=== PATIENT | female | born 1965 | race Caucasian/White ===

== ENCOUNTER 2021-03-07 19:39 | Inpatient (IN) | payer MEDICAID ==
[~2021-03-07] VITALS: Ht 162.6 cm; Wt 63.4 kg
[2021-03-07] MEDS ORDERED: CefTRIAXone/D5W-Rocephin 1gm 50 ML IV ONE (23:00)
[2021-03-07 23:02] LABS: BASOPHILS % (AUTO) 0.4 % (0-1); EOSINOPHILS % (AUTO) 0.3 % (0-6); HEMATOCRIT 37.6 % (35.0-45.0); HEMOGLOBIN 12.3 g/dl (12.0-16.0); LYMPHOCYTES # (AUTO) 0.8 X10'3 (1.1-4.8); LYMPHOCYTES % (AUTO) 6.2 % (21-51); MEAN CORPUSCULAR HEMOGLOBIN 28.9 PG (27.0-31.0); MEAN CORPUSCULAR HGB CONC 32.7 g/dL (33.0-36.5); MEAN CORPUSCULAR VOLUME 88.3 FL (78-98); MEAN PLATELET VOLUME 8.3 FL (7.4-10.4); MONOCYTES # (AUTO) 1.4 X10'3 (0-0.9); MONOCYTES % (AUTO) 11.1 % (2-12); NEUTROPHILS # (AUTO) 10.1 X10'3 (1.8-7.7); PLATELET COUNT 174 X10'3 (140-440); RED BLOOD COUNT 4.26 X10'6 (4.20-5.60); RED CELL DISTRIBUTION WIDTH 15.6 % (11.5-14.5); WHITE BLOOD COUNT 12.3 X10'3 (4.5-11.0)
[2021-03-07 23:09] LABS: ALBUMIN 2.7 G/DL (3.4-5.0); ANION GAP 9 (8-16); BLOOD UREA NITROGEN 23 MG/DL (7-18); BUN/CREATININE RATIO 22.1 (6.6-38.0); CHLORIDE 106 MMOL/L (99-107); CREATININE 1.04 MG/DL (0.40-0.90); GLUCOSE 116 MG/DL (70-104); POTASSIUM 3.5 MMOL/L (3.5-5.1); SODIUM 142 MMOL/L (135-145); TOTAL CARBON DIOXIDE 26.6 MMOL/L (24-32); eGFR 55 ML/MIN
[2021-03-08] MEDS ORDERED: magnesium hydroxide 30ml (MOM) UD suspension PO PRN (01:30)
[2021-03-08] MEDS ORDERED: acetaminophen 325mg tablet PO PRN (01:30)
[2021-03-08] MEDS ORDERED: mag hydrox/Alum hydrox/simeth 30ml oral suspension PO PRN (01:30)
[2021-03-08] MEDS ORDERED: HYDROcodone/acetaminophen 5mg/325mg tablet PO PRN (01:30)
[2021-03-08] MEDS ORDERED: ondansetron/PF 4mg/2ml inj IV PRN (01:30)
[2021-03-08] MEDS ORDERED: CALC600T35 PO (01:52)
[2021-03-08] MEDS ORDERED: AMOX500C4 PO (01:52)
[2021-03-08] MEDS ORDERED: CHOL500050 PO (01:52)
[2021-03-08] MEDS ORDERED: PRED10TA PO (01:52)
[2021-03-08] MEDS ORDERED: DOXY100T30 PO (01:52)
[2021-03-08] MEDS ORDERED: AMOX-580 PO (01:52)
[2021-03-08] MEDS ORDERED: APIX5TAB3 PO (01:52)
[2021-03-08] MEDS: vancomycin/NS 1 GM ADD-VANTAGE 250 ML IV SCH ×2 (02:30→14:17)
--- NOTE | 2021-03-08 07:11 | NUR ---
Patient in room ED 1. I have received report from Jillian SMALLWOOD from ED and had the opportunity to ask questions and assume patient care.
[2021-03-08 07:36] VITALS: BP 119/74
[2021-03-08] MEDS: docusate sod 100mg capsule PO SCH ×2 (08:00→19:43)
[2021-03-08] MEDS ORDERED: amoxicillin 250mg capsule PO SCH (10:54)
[2021-03-08] MEDS ORDERED: cholecalciferol (vitamin D3) 1,000 unit (25mcg) tablet PO SCH (10:55)
[2021-03-08] MEDS ORDERED: DOXYCYCLINE 100MG CAPSULE PO SCH (10:56)
[2021-03-08 11:00] VITALS: BP 125/68
--- NOTE | 2021-03-08 13:21 | NUR ---
PAGER ID: [phone] MESSAGE: Rosio Chaney#[phone] Pt states she needs her prednisone today, she does not want to miss a dose. Can we give a 1x dose to get her caught up?? Thank you Gabriella Wade
[2021-03-08] MEDS ORDERED: prednisone 10mg tablet PO ONE (14:15)
--- NOTE | 2021-03-08 18:41 | NUR ---
Patient in room [facility] 346. I have received report from CL Quiroz and had the opportunity to ask questions and assume patient care.
[2021-03-08] MEDS: CefTRIAXone 2gm/D5W 50ml BAG 50 ML IV SCH (18:47)
[2021-03-08 19:00] VITALS: BP 130/68
--- NOTE | 2021-03-08 19:06 | NUR ---
Problems reprioritized. Patient report given, questions answered & plan of care reviewed with Irene SMALLWOOD.
[2021-03-08] MEDS: calcium carbonate 500mg tablet PO SCH (19:44)
[2021-03-08] MEDS: apixaban 5mg tablet PO SCH (19:44)
[2021-03-08] MEDS: lactobacillus rhamnosus 10,000 MMU CELLS/CAPSULE PO SCH (19:45)
[2021-03-09] VITALS: BP 145/70
[2021-03-09] MEDS: vancomycin/NS 1 GM ADD-VANTAGE 250 ML IV SCH (00:54)
[2021-03-09 06:09] LABS: BASOPHILS % (AUTO) 0.2 % (0-1); EOSINOPHILS # (AUTO) 0.1 X10'3 (0-0.9); EOSINOPHILS % (AUTO) 1.1 % (0-6); HEMATOCRIT 39.6 % (35.0-45.0); LYMPHOCYTES # (AUTO) 0.6 X10'3 (1.1-4.8); LYMPHOCYTES % (AUTO) 5.9 % (21-51); MEAN CORPUSCULAR HEMOGLOBIN 29.2 PG (27.0-31.0); MEAN CORPUSCULAR HGB CONC 32.9 g/dL (33.0-36.5); MEAN CORPUSCULAR VOLUME 88.6 FL (78-98); MEAN PLATELET VOLUME 8.6 FL (7.4-10.4); MONOCYTES # (AUTO) 0.9 X10'3 (0-0.9); MONOCYTES % (AUTO) 9.5 % (2-12); NEUTROPHILS % (AUTO) 83.3 % (42-75); PLATELET COUNT 164 X10'3 (140-440); RED BLOOD COUNT 4.47 X10'6 (4.20-5.60); RED CELL DISTRIBUTION WIDTH 15.4 % (11.5-14.5); WHITE BLOOD COUNT 9.6 X10'3 (4.5-11.0)
--- NOTE | 2021-03-09 06:10 | NUR ---
Problems reprioritized. Patient report given, questions answered & plan of care reviewed with CL Villa.
[2021-03-09 06:17] LABS: ALANINE AMINOTRANSFERASE 125 U/L (12-78); ALBUMIN 2.8 G/DL (3.4-5.0); ALBUMIN/GLOBULIN RATIO 0.6 (1.1-1.5); ALKALINE PHOSPHATASE 164 IU/L (46-116); ANION GAP 8 (8-16); ASPARTATE AMINO TRANSFERASE 82 U/L (10-37); BILIRUBIN,TOTAL 0.5 MG/DL (0.1-1.0); BLOOD UREA NITROGEN 14 MG/DL (7-18); BUN/CREATININE RATIO 17.1 (6.6-38.0); CALCIUM 8.7 MG/DL (8.5-10.1); CHLORIDE 110 MMOL/L (99-107); CREATININE 0.82 MG/DL (0.40-0.90); GLUCOSE 89 MG/DL (70-104); POTASSIUM 3.9 MMOL/L (3.5-5.1); SODIUM 145 MMOL/L (135-145); TOTAL PROTEIN 7.3 G/DL (6.4-8.2); eGFR 72 ML/MIN
--- NOTE | 2021-03-09 06:30 | NUR ---
Patient in room [facility] 346. I have received report from Irene SMALLWOOD and had the opportunity to ask questions and assume patient care.
[2021-03-09 07:00] VITALS: BP 147/81
[2021-03-09] MEDS: docusate sod 100mg capsule PO SCH (08:00)
[2021-03-09] MEDS ORDERED: prednisone 10mg tablet PO SCH (08:00)
--- NOTE | 2021-03-09 08:30 | NUR ---
attempt to flush patients saline lock prior to infusing abx. pt states too painful to flush. Request asking MD if can leave IV out. Dr Hayes on floor, states ok to leave IV out. Will order po abx.
[2021-03-09] MEDS: CefTRIAXone 2gm/D5W 50ml BAG 50 ML IV SCH (08:43)
[2021-03-09] MEDS: lactobacillus rhamnosus 10,000 MMU CELLS/CAPSULE PO SCH (08:45)
[2021-03-09] MEDS: apixaban 5mg tablet PO SCH (08:45)
[2021-03-09] MEDS: calcium carbonate 500mg tablet PO SCH (08:45)
[2021-03-09] MEDS ORDERED: CEPH-585 PO (09:19)
[2021-03-09] MEDS ORDERED: DOXYCYCLINE 100MG CAPSULE PO STA (11:23)
[2021-03-09 12:00] VITALS: BP 137/70
--- NOTE | 2021-03-09 12:15 | NUR ---
verbally reviewed discharge instructions with patient. Instructed to call outpatient wound care for appointment date and time. Education given as per teaching record. Assisted to WC with all belongings and instructions. Escorted to private vehicle.
[2021-03-09] MEDS ORDERED: VANCOMYCIN LEVEL IV ONE (12:30)
== END 2021-03-09 12:20 | disposition home or self-care (01) | DRG 383 ==
LOC: ER 19:40 → ED HOLD 03-08 01:32 → SUR 3N 03-08 07:29
PROVIDERS: ADMIT Internal Medicine; ATTEND Family Medicine
DX: L03.116 Cellulitis of left lower limb (principal); M31.30 Wegener's granulomatosis without renal involvement; I48.91 Unspecified atrial fibrillation; Z79.52 Long term (current) use of systemic steroids; Z85.828 Personal history of other malignant neoplasm of skin; Z88.2 Allergy status to sulfonamides; Z88.8 Allergy status to other drugs, medicaments and biological substances; Z98.891 History of uterine scar from previous surgery
CPT/HCPCS: 36415; 71045; 80048; 80053; 83605; 85025; 87081; 93971; 99285; G0378; J0696; J3370; J7512